=== PATIENT | female | born 1955 | race Caucasian/White ===

== ENCOUNTER 2021-11-03 16:37 | Emergency (ER) | payer SELFPAY ==
[~2021-11-03] VITALS: Ht 149.9 cm; Wt 102.1 kg
[2021-11-03 16:42] VITALS: BP 185/102
--- NOTE | 2021-11-03 17:08 | NUR ---
PATIENT AMBULATED TO BED 3
[2021-11-03] MEDS ORDERED: HYDROcodone/APAP 5/325 MG 1 TAB TAB PO ONE (17:10)
--- NOTE | 2021-11-03 17:10 | NUR ---
[facility] AT BEDSIDE
--- NOTE | 2021-11-03 17:15 | NUR ---
66 y/o F c/o right-sided flank pain x 1 week. Pt referred from Urgent Care for ER evaluation. Pt states R flank pain 10/10, sharp/intermittent, non-radiating pain. Pt reports pain causes pt to be SOB. Denies dysuria, hematuria, abdominal pain, n/v/d, chest pain. R flank tender to palpation. Bed locked in lowest position, side rails x 1. pmh: none meds: none nka
--- NOTE | 2021-11-03 17:22 | NUR ---
U/A WALKD TO LAB
[2021-11-03 17:46] LABS: APPEARANCE,URINE CLEAR (CLEAR); BILIRUBIN,URINE NEGATIVE (NEGATIVE); BLOOD, URINE NEGATIVE (NEGATIVE); COLOR,URINE YELLOW (YELLOW); LEUKOCYTE ESTERASE ,URINE NEGATIVE (NEGATIVE); NITRITE, URINE NEGATIVE (NEGATIVE); UGLUCOSE NEGATIVE (NEGATIVE)
--- NOTE | 2021-11-03 18:18 | NUR ---
SPOKE TO DAUGHTER, GAVE UPDATE ON PATIENT
[2021-11-03 18:43] LABS: BASOPHILS # (AUTO) 0.1 K/uL (0.00-0.22); BASOPHILS % (AUTO) 0.7 % (0.0-2.0); EOSINOPHILS # (AUTO) 0.3 K/uL (0-0.4); EOSINOPHILS % (AUTO) 3.2 % (0.0-4.0); HEMATOCRIT 41.9 % (36-48); HEMOGLOBIN 14.4 g/dL (12.0-16.0); LYMPHOCYTES # (AUTO) 2.8 K/uL (2.5-16.5); LYMPHOCYTES % (AUTO) 27.2 % (20.5-51.1); MEAN CORPUSCULAR HEMOGLOBIN 32 pg (27-31); MEAN CORPUSCULAR HGB CONC 34 g/dL (33-37); MEAN CORPUSCULAR VOLUME 92.8 fL (80-94); MONOCYTES # (AUTO) 0.7 K/uL (0.8-1.0); MONOCYTES % (AUTO) 6.8 % (1.7-9.3); NEUTROPHILS # (AUTO) 6.3 K/uL (1.8-7.7); NEUTROPHILS % (AUTO) 62.1 % (42.2-75.2); PLATELET COUNT (AUTO) 283 K/uL (140-450); RED BLOOD CELL COUNT(AUTO) 4.52 MIL/uL (4.20-5.40); RED CELL DISTRIBUTION WIDTH 13.8 % (11.6-13.7); WHITE BLOOD COUNT (AUTO) 10.1 K/uL (4.8-10.8)
--- NOTE | 2021-11-03 19:00 | NUR ---
Chart checked and completed. The patient's care was reviewed and supervised by Francisco Robledo, RN, RN.
[2021-11-03 19:02] LABS: ALBUMIN 4.1 g/dL (3.4-5.0); ANION GAP 14.5 (8-16); CARBON DIOXIDE 25.2 mmol/L (21-32); CREATININE 0.8 mg/dL (0.6-1.3); POTASSIUM 3.7 mmol/L (3.5-5.1); TOTAL BILIRUBIN 0.6 mg/dL (0.0-1.0)
--- NOTE | 2021-11-03 19:21 | NUR ---
Pt report given to Vanessa. Transfer of care at this time.
[2021-11-03] MEDS ORDERED: ACET-10509 PO (19:32)
--- NOTE | 2021-11-03 19:44 | NUR ---
handoff received from MISAEL BENITES
[2021-11-03 20:07] VITALS: BP 141/65
--- NOTE | 2021-11-03 20:09 | NUR ---
Patient discharged with v/s stable. Written and verbal after care instructions given and explained. Patient alert, oriented and verbalized understanding of instructions. Ambulatory with steady gait. All questions addressed prior to discharge. ID band removed. Patient advised to follow up with PMD. Rx of ACETAMINOPHEN given. Patient educated on indication of medication including possible reaction and side effects. Opportunity to ask questions provided and answered. COPY OF RESULTS PROVIDED TO PT.
== END 2021-11-03 20:07 | disposition home or self-care (01) ==
LOC: MED 16:37
DX: R10.9 Unspecified abdominal pain (principal); Z79.899 Other long term (current) drug therapy; Z98.890 Other specified postprocedural states
CPT/HCPCS: 36415; 80053; 81003; 83690; 85025; 99285